=== PATIENT | female | born 1960 | race Caucasian/White ===

== ENCOUNTER 2019-06-04 12:10 | Emergency (ER) | payer BC, OTHER ==
--- NOTE | 2019-06-04 12:28 | EDM.PDOC ---
ED HPI GENERAL MEDICAL PROBLEM - General Chief Complaint: Skin Complaint Stated Complaint: POSSIBLE SHINGLES Time Seen by Provider: 06/04/19 12:27 Source of Information: Reports: Patient History Limitations: Reports: No Limitations - History of Present Illness INITIAL COMMENTS - FREE TEXT/NARRATIVE: HISTORY AND PHYSICAL: History of present illness: Patient is a 8-year-old female presents to the ED with concern of rash on her back. She states she started having back pain 4 days ago, today noticed a rash he left side of her back. She states she's had cold symptoms and felt feverish a few days ago. Review of systems: As per history of present illness and below otherwise all systems reviewed and negative. Past medical history: As per history of present illness and as reviewed below otherwise noncontributory. Surgical history: As per history of present illness and as reviewed below otherwise noncontributory. Social history: No reported history of drug or alcohol abuse. Family history: As per history of present illness and as reviewed below otherwise noncontributory. Physical exam: General: Patient sitting comfortably in no acute distress and nontoxic appearing HEENT: Atraumatic, normocephalic, pupils reactive, negative for conjunctival pallor or scleral icterus, mucous membranes moist, throat clear, neck supple, nontender, trachea midline. No meningeal signs. Lungs: Clear to auscultation, breath sounds equal bilaterally, chest nontender. Heart: S1S2, regular, negative for clicks, rubs, or overt murmur. Abdomen: Soft, nondistended, nontender. Negative for masses or hepatosplenomegaly. Negative for costovertebral tenderness. No rigidity, rebound , guarding. Pelvis: Stable nontender. Genitourinary: Deferred. Rectal: Deferred. Skin: there is clustered vesicles on an erythematous base Extremities: Atraumatic, negative for cords or calf pain. Neurovascular unremarkable. Neuro: Awake, alert, oriented. Cranial nerves II through XII unremarkable. Cerebellum unremarkable. Motor and sensory unremarkable throughout. Exam nonfocal. Notes: Diagnostics: none Therapeutics: [] Prescriptions: Valacyclovir Tramadol Impression: Shingles Plan: Take medications as instructed Follow up with primary care provider Return to ED as needed as discussed Definitive disposition and diagnosis as appropriate pending reevaluation and review of above. left side of back Pain Score (Numeric/FACES): 8 - Related Data Allergies Allergy/AdvReac Type Severity Reaction Status Date / Time No Known Allergies Allergy Verified 06/03/17 16:01 Home Meds: Home Meds Levothyroxine Sodium 06/04/19 [History] Lisinopril 06/04/19 [History] Omeprazole Magnesium [Prilosec Otc] 06/04/19 [History] Venlafaxine HCl [Venlafaxine ER] 06/04/19 [History] traMADol HCl [Tramadol HCl] 50 mg PO Q6H PRN #15 tablet 06/04/19 [Rx] valACYclovir [Valtrex] 1,000 mg PO TID 7 Days #21 tab 06/04/19 [Rx] Past Medical History Cardiovascular History: Reports: Hypertension Endocrine/Metabolic History: Reports: Hypothyroidism - Infectious Disease History Infectious Disease History: Reports: Chicken Pox Social & Family History - Family History Family Medical History: Noncontributory - Tobacco Use Smoking Status *Q: Never Smoker - Recreational Drug Use Recreational Drug Use: No ED ROS GENERAL - Review of Systems Review Of Systems: ROS reveals no pertinent complaints other than HPI. ED EXAM, SKIN/RASH Exam: See Below (see dictation) Course - Vital Signs Last Recorded V/S: Last Vital Signs Temp 95.8 F 06/04/19 12:18 Pulse 107 H 06/04/19 12:18 Resp 18 06/04/19 12:18 BP 156/97 H 06/04/19 12:18 Pulse Ox 98 06/04/19 12:18 Departure - Departure Time of Disposition: 12:45 Disposition: Home, Self-Care 01 Condition: Good Clinical Impression: Shingles - Discharge Information Prescriptions: traMADol HCl [Tramadol HCl] 50 mg PO Q6H PRN #15 tablet PRN Reason: Pain (Severe 7-10) valACYclovir [Valtrex] 1,000 mg PO TID 7 Days #21 tab Instructions: Shingles, [id number] Referrals: Tanner Roman MD [Primary Care Provider] - Forms: ED Department Discharge Additional Instructions: The following information is given to patients seen in the emergency department who are being discharged to home. This information is to outline your options for follow-up care. We provide all patients seen in our emergency department with a follow-up referral. The need for follow-up, as well as the timing and circumstances, are variable depending upon the specifics of your emergency department visit. If you don't have a primary care physician on staff, we will provide you with a referral. We always advise you to contact your personal physician following an emergency department visit to inform them of the circumstance of the visit and for follow-up with them and/or the need for any referrals to a consulting specialist. The emergency department will also refer you to a specialist when appropriate. This referral assures that you have the opportunity for follow-up care with a specialist. All of these measure are taken in an effort to provide you with optimal care, which includes your follow-up. Under all circumstances we always encourage you to contact your private physician who remains a resource for coordinating your care. When calling for follow-up care, please make the office aware that this follow-up is from your recent emergency room visit. If for any reason you are refused follow-up, please contact the [facility] Emergency Department at and asked to speak to the emergency department charge nurse. [facility] [address] [place] [id number] [id number] Take medications as instructed Follow up with primary care provider Return to ED as needed as discussed
== END 2019-06-04 15:44 | disposition home or self-care (01) ==
LOC: MW.ED 12:10
DX: B02.9 Zoster without complications (principal); I10 Essential (primary) hypertension; E03.9 Hypothyroidism, unspecified; Z79.890 Hormone replacement therapy; Z79.899 Other long term (current) drug therapy
CPT/HCPCS: 99282

== ENCOUNTER 2020-07-20 11:33 | Emergency (ER) | payer OTHER ==
--- NOTE | 2020-07-20 12:08 | EDM.PDOC ---
ED HPI GENERAL MEDICAL PROBLEM - General Chief Complaint: ENT Problem Stated Complaint: CHILLS SINUS Time Seen by Provider: 07/20/20 11:36 Source of Information: Reports: Patient History Limitations: Reports: No Limitations - History of Present Illness INITIAL COMMENTS - FREE TEXT/NARRATIVE: 59-year-old female with a past medical history of hypothyroidism and hypertension presenting with sinus pressure. Reports a 3-day history of sinus pressure, nasal congestion, and chills. 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 Denies any headache, fever, neck pain, chest pain, shortness of breath, difficulty speaking or swallowing, abdominal pain, dysuria, or rash. Past medical history: Reviewed, no additional pertinent history. Surgical history: Reviewed in system, no additional pertinent history. Social history: Reviewed in system, no additional pertinent history. Family history: Reviewed in system, no additional pertinent history. Limited physical examination was performed due to COVID pandemic, distanced physical examination to prevent physician exposure and to preserve PPE. Vital signs reviewed. Nursing notes reviewed. Constitutional: Awake, alert, non-distressed. Head: Normocephalic, atraumatic. Eyes: No scleral icterus. ENT: Uvula midline, moist oral mucosa. Nares clear bilaterally. No maxillary or frontal sinus tenderness. Neck: Able to fully flex and extend. Fully rotates side to side. Cardiovascular: No extremity edema. Pulmonary: normal work of breathing, no accessory muscle use. Speaking in full sentences, handling secretions well. Abdomen/GI: nondistended Musculoskeletal: No deformities. Integumentary: Appropriate color for ethnicity, warm, dry, no pallor or jaundice, no rash. Neurologic: Alert, answering questions appropriately, normal speech, no facial droop, moving all extremities well. Normal voice. Psychiatric: Appropriate mood and affect, normal thought process. This patient was seen and evaluated during the 2019 SARS-CoV-2 novel coronavirus pandemic period. Community viral transmission is ongoing at time of this encounter and widespread universal testing is not currently available in our emergency department. - Related Data Allergies Allergy/AdvReac Type Severity Reaction Status Date / Time amoxicillin [From Augmentin] Allergy Diarrhea Verified 07/20/20 11:44 clavulanic acid Allergy Diarrhea Verified 07/20/20 11:44 [From Augmentin] Home Meds: Home Meds Omeprazole Magnesium [Prilosec Otc] 20 mg PO DAILY PRN 06/04/19 [History] lisinopriL [Lisinopril] 5 mg PO DAILY 06/04/19 [History] Levothyroxine 112 mcg PO DAILY 07/20/20 [History] Rosuvastatin [Crestor] 5 mg PO DAILY 07/20/20 [History] Venlafaxine [Effexor XR] 75 mg PO DAILY 07/20/20 [History] Past Medical History Cardiovascular History: Reports: High Cholesterol, Hypertension Endocrine/Metabolic History: Reports: Hypothyroidism - Infectious Disease History Infectious Disease History: Reports: Chicken Pox, Shingles - Past Surgical History Female Surgical History: Reports: D&C Social & Family History - Family History Family Medical History: No Pertinent Family History - Tobacco Use Tobacco Use Status *Q: Never Tobacco User - Recreational Drug Use Recreational Drug Use: No ED ROS ENT - Review of Systems Review Of Systems: See Below ED EXAM, ENT - Physical Exam Exam: See Below Course - Vital Signs Text/Narrative:: Patient hemodynamically stable, afebrile, well-appearing, looks nontoxic. Differential diagnosis includes but is not limited to: COVID-19 infection, viral URI, viral sinusitis, less likely bacterial sinusitis. No evidence of sinusitis, no rhinorrhea noted. Handling secretions well without difficulty. Looks nontoxic. COVID-19 test is positive. I believe that her symptoms are consistent with this. She will be able to discharge home. We discussed symptomatic treatment including decongestant medications, Tylenol, Motrin, and plenty of fluids. Provided strict return precautions. Discussed isolation precautions patient voiced understanding. Plan: Patient is stable to discharge home with outpatient primary care clinic follow-up. Strict emergency department return precautions were provided, patient indicated understanding. All questions were answered prior to departure. Discharged in good condition. Last Recorded V/S: Last Vital Signs Temp 36.7 C 07/20/20 11:41 Pulse 100 07/20/20 11:41 Resp 16 07/20/20 11:41 BP 135/82 07/20/20 11:41 Pulse Ox 99 07/20/20 11:41 - Orders/Labs/Meds Orders: Active Orders 24 hr Category Date Time Status CORONAVIRUS COVID-19 PCR [facility] Stat Lab 07/20/20 12:08 Received Labs: Laboratory Tests 07/20/20 Range/Units 12:08 SARS CoV-2 RNA Rapid JOSE ANTONIO POSITIVE H (NEGATIVE) Departure - Departure Time of Disposition: 12:38 Disposition: Home, Self-Care 01 Condition: Good Clinical Impression: COVID-19 virus infection - Discharge Information *PRESCRIPTION DRUG MONITORING PROGRAM REVIEWED*: Not Applicable Instructions: COVID-19, Swallowed Foreign Body, Adult, [id number], Prevent the Spread of COVID-19 if You Are Sick - [facility] Referrals: [facility] [Provider Group] - 1 Week (As needed for follow-up of symptoms.) Forms: ED Department Discharge Additional Instructions: Your COVID-19 test was positive. You need to stay home from work or school and isolate from others as much as possible. You need to wear a mask or face covering and you should cover your cough or sneeze. Wash your hands frequently. Try to isolate yourself from family members or others as much as you can. You may develop new symptoms such as a headache, sore throat, cough, sneezing, nasal congestion or drainage, chest congestion, nausea, vomiting, diarrhea, body aches, or chills. These are not unusual. Recommendations from the Centers for Disease Control (CDC) are that you should isolate at home for at least 10 days from the start of your symptoms. When your areof improving for a period of 24 hours and you have no fever (without the use of fever reducing medications like acetaminophen or ibuprofen), you may discontinue isolation and go back to work/school. If you are still feeling unwell at the end of the 10-day period, you should continue to isolate until you have been feeling better for 24 hours. Anyone that lives with you or anyone that has been in close contact (within 6 feet for 15 total minutes) recently (3-4 days before your symptoms started) needs to be tested for COVID. You can take any standard [id number] medications for cold or flu type symptoms including fever reducing medications (acetaminophen or ibuprofen), cough medications (Robitussin, cough drops or lozenges), or medications like TheraFlu or DayQuil/NyQuil. Be sure you are drinking plenty of fluids. If you are still feeling sick beyond 10-14 days after the onset of your symptoms I would recommend contacting your primary medical doctor's office for further guidance. Warning signs to come back to the emergency department include shortness of breath, chest pain, lightheadedness, loss of consciousness, if you are unable to swallow or handle drinking fluids, or if you have any other new and concerning symptoms. Thank you for choosing the [facility] emergency department in [place] for your medical needs today. It was a pleasure caring for you. The following information is given to patients seen in the emergency department who are being discharged. This information is to outline your options for foll ow-up care. We provide all patients seen in our emergency department with a follow-up referral. The need for follow-up, as well as the timing and circumstances, are variable depending upon the specifics of your emergency department visit. If you don't have a primary care physician on staff, we will provide you with a referral. We always advise you to contact your personal physician following an emergency department visit to inform them of the circumstance of the visit and for follow-up with them and/or the need for any referrals to a consulting specialist. The emergency department will also refer you to a specialist when appropriate. This referral assures that you have the opportunity for follow-up care with a specialist. All of these measure are taken in an effort to provide you with o ptimal care, which includes your follow-up. Under all circumstances we always encourage you to contact your private physician who remains a resource for coordinating your care. When calling for follow-up care, please make the office aware that this follow-up is from your recent emergency room visit. If for any reason you are refused follow-up, please contact the [facility] Emergency Department at and asked to speak to the emergency department charge nurse. If you do not have a primary care physician that is caring for you, you can contact these clinics below to set up an appointment to establish care: [facility] - Primary [facility] [address] [place] [address] [facility] [address] [place] [address] Sepsis Event Note (ED) - Evaluation Sepsis Screening Result: No Definite Risk - Focused Exam Vital Signs: Vital Signs Temp Pulse Resp BP Pulse Ox 07/20/20 11:41 36.7 C 100 16 135/82 99 - My Orders Last 24 Hours: My Active Orders 07/20/20 12:08 CORONAVIRUS COVID-19 PCR PHL Stat - Assessment/Plan Last 24 Hours: My Active Orders 07/20/20 12:08 CORONAVIRUS COVID-19 PCR PHL Stat
== END 2020-07-20 13:06 | disposition home or self-care (01) ==
LOC: MW.ED 11:33
DX: U07.1 COVID-19 (principal); E78.00 Pure hypercholesterolemia, unspecified; I10 Essential (primary) hypertension; E03.9 Hypothyroidism, unspecified; Z79.899 Other long term (current) drug therapy; Z88.1 Allergy status to other antibiotic agents
CPT/HCPCS: 99282; 99283; U0002

== ENCOUNTER 2021-08-07 07:14 | Day surgery (SDC) | payer BC, OTHER ==
[~2021-08-07 07:14] MED LIST: Lactated Ringers 1,000 ML IV SCH
[2021-08-07] MEDS ORDERED: Ondansetron 4 MG/2 ML SDV ONE (08:15)
[2021-08-07] MEDS ORDERED: Dexamethasone 4 MG/ML 5 ML MDV ONE (08:15)
[2021-08-07] MEDS ORDERED: Lidocaine 2% 5 ML SDV ONE (08:15)
[2021-08-07] MEDS ORDERED: Midazolam 1 MG/ML 2 ML SDV ONE (08:16)
[2021-08-07] MEDS ORDERED: Propofol 200 MG/20 ML SDV ONE (08:16)
[2021-08-07] MEDS ORDERED: fentaNYL 100 MCG/2 ML SDV ONE ×2 (08:16→09:53)
[2021-08-07] MEDS ORDERED: Lidocaine 1% 20 ML MDV ONE (08:21)
[2021-08-07] MEDS ORDERED: Bupivacaine 0.5% 30 ML SDV ONE (08:21)
[2021-08-07] MEDS ORDERED: Bupivacaine 25%/EPINEPHrine/PF 0 ML ONE (08:22)
[2021-08-07] MEDS ORDERED: Morphine 4 MG/ML VIAL IVPUSH PRN (08:51)
[2021-08-07] MEDS ORDERED: Naloxone 0.4 MG/ML SDV IVPUSH PRN (08:51)
[2021-08-07] MEDS ORDERED: fentaNYL 100 MCG/2 ML SDV IVPUSH PRN (08:51)
[2021-08-07] MEDS ORDERED: Ondansetron 4 MG/2 ML SDV IVPUSH PRN (08:51)
[2021-08-07] MEDS ORDERED: Metoclopramide 10 MG/2 ML SDV IVPUSH PRN (08:51)
[2021-08-07] MEDS ORDERED: HYDROmorphone 1 MG/ML Syringe IVPUSH PRN (08:51)
[2021-08-07] MEDS ORDERED: Albuterol 0.083% 2.5 MG/3 ML Neb Soln NEB PRN (08:51)
--- NOTE | 2021-08-07 08:51 | PCM.PREANE ---
Preanesthetic Assessment - Anesthesia/Transfusion/Family Hx Anesthesia History: Prior Anesthesia Without Reaction Transfusion History: No Prior Transfusion(s) - Review of Systems General: No Symptoms Pulmonary: No Symptoms, Other (post-nasal drip from allergies) Cardiovascular: No Symptoms Gastrointestinal: No Symptoms Neurological: No Symptoms Other: Reports: None - Physical Assessment NPO Status Date: 08/06/21 NPO Status Time: 20:00 Vital Signs: Last Vital Signs Temp 97.5 F 08/07/21 08:25 Pulse 88 08/07/21 08:25 Resp 16 08/07/21 08:25 BP 159/82 H 08/07/21 08:25 Pulse Ox 97 08/07/21 08:25 Height: 5 ft 6 in Weight: 81.647 kg ASA Class: 2 Mental Status: Alert & Oriented x3 Airway Class: Mallampati = 3 Dentition: Reports: Normal Dentition Thyro-Mental Finger Breadths: 2 Mouth Opening Finger Breadths: 3 ROM/Head Extension: Full Lungs: Clear to Auscultation, Normal Respiratory Effort Cardiovascular: Regular Rate, Regular Rhythm - Lab Values: Laboratory Last Values SARS-CoV-2 RNA (JOSE ANTONIO) NEGATIVE (NEGATIVE) 08/07/21 06:58 - Allergies Allergies/Adverse Reactions: Allergies Allergy/AdvReac Type Severity Reaction Status Date / Time amoxicillin [From Augmentin] Allergy Diarrhea Verified 07/20/20 11:44 clavulanic acid Allergy Diarrhea Verified 07/20/20 11:44 [From Augmentin] - Acknowledgements Anesthesia Type Planned: General Anesthesia Pt an Appropriate Candidate for the Planned Anesthesia: Yes Alternatives and Risks of Anesthesia Discussed w Pt/Guardian: Yes Pt/Guardian Understands and Agrees with Anesthesia Plan: Yes PreAnesthesia Questionnaire HEENT History: Reports: Allergic Rhinitis, Other (See Below) Other HEENT History: wears glasses Cardiovascular History: Reports: High Cholesterol, Hypertension Respiratory History: Reports: Sleep Apnea Other Respiratory History: uses CPAP Gastrointestinal History: Reports: None Genitourinary History: Reports: None Musculoskeletal History: Reports: None Neurological History: Reports: None Psychiatric History: Reports: Depression Endocrine/Metabolic History: Reports: Hypothyroidism Hematologic History: Reports: None Immunologic History: Reports: None Oncologic (Cancer) History: Reports: Other (See Below) Other Oncologic History: 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 Dermatologic History: Reports: Eczema - Infectious Disease History Infectious Disease History: Reports: Chicken Pox, Shingles - Past Surgical History Head Surgeries/Procedures: Reports: None HEENT Surgical History: Reports: None Cardiovascular Surgical History: Reports: None Respiratory Surgical History: Reports: None GI Surgical History: Reports: None Female Surgical History: Reports: D&C Endocrine Surgical History: Reports: None Neurological Surgical History: Reports: None Musculoskeletal Surgical History: Reports: None Oncologic Surgical History: Reports: None Dermatological Surgical History: Reports: Skin Biopsy - SUBSTANCE USE Tobacco Use Status *Q: Never Tobacco User - HOME MEDS Home Medications: Home Meds lisinopriL [Lisinopril] 5 mg PO DAILY 06/04/19 [History] Levothyroxine 112 mcg PO DAILY 07/20/20 [History] Venlafaxine [Effexor XR] 150 mg PO DAILY 07/20/20 [History] Fexofenadine/Pseudoephedrine [Fani-D 12 Hour Tablet] 1 tab PO DAILY 08/04/21 [History] Fluticasone Propionate 1 spray NASBOTH BID 08/04/21 [History] atorvaSTATin [Lipitor] 10 mg PO DAILY 08/04/21 [History] hydrOXYzine HCL [Hydroxyzine HCl] 25 mg PO BEDTIME 08/04/21 [History] - CURRENT (IN HOUSE) MEDS Current Meds: Current Medications Lactated Ringer's (Ringers, Lactated) 1,000 mls @ 125 mls/hr IV ASDIRECTED [facility] Clindamycin Phosphate (Cleocin In D5w 600 Mg/50 Ml) 50 mls @ 100 mls/hr IV ONCALL VALERIE Discontinued Medications Bupivacaine HCl (Bupivacaine 0.5% 30 Ml Sdv) Confirm Administered Dose 30 ml .ROUTE .STK-MED ONE Stop: 08/07/21 08:22 Dexamethasone (Dexamethasone 4 Mg/Ml 5 Ml Mdv) Confirm Administered Dose 20 mg .ROUTE .STK-MED ONE Stop: 08/07/21 08:16 Fentanyl (Fentanyl 100 Mcg/2 Ml Sdv) Confirm Administered Dose 100 mcg .ROUTE .STK-MED ONE Stop: 08/07/21 08:17 Clindamycin Phosphate 600 mg/ (Sodium Chloride) 54 mls @ 100 mls/hr IV ONETIME ONE Stop: 08/07/21 09:32 Bupivacaine HCl/Epinephrine Bitart (Sensorc Mpf 0.25%-Epi [id number]) Confirm Administered Dose 30 mls @ as directed .ROUTE .STK-MED ONE Stop: 08/07/21 08:23 Lidocaine (Lidocaine 2% 5 Ml Sdv) Confirm Administered Dose 5 ml .ROUTE .STK-MED ONE Stop: 08/07/21 08:16 Lidocaine HCl (Lidocaine 1% 20 Ml Mdv) Confirm Administered Dose 20 ml .ROUTE .STJigsee-MED ONE Stop: 08/07/21 08:22 Midazolam HCl (Midazolam 1 Mg/Ml 2 Ml Sdv) Confirm Administered Dose 2 mg .ROUTE .STJigsee-MED ONE Stop: 08/07/21 08:17 Ondansetron HCl (Ondansetron 4 Mg/2 Ml Sdv) Confirm Administered Dose 4 mg .ROUTE .STJigsee-MED ONE Stop: 08/07/21 08:16 Propofol (Propofol 200 Mg/20 Ml Sdv) Confirm Administered Dose 200 mg .ROUTE .STJigsee-MED ONE Stop: 08/07/21 08:17
[2021-08-07] MEDS ORDERED: Clindamycin Phosphate in D5W 50 ML IV SCH (09:00)
[2021-08-07] MEDS ORDERED: ePHEDrine 50 MG/ML SDV ONE (09:47)
[2021-08-07] MEDS ORDERED: Vasopressin 20 Units/1 ML MDV ONE (10:01)
[2021-08-07] MEDS ORDERED: Ketorolac 30 MG/ML SDV ONE (10:08)
--- NOTE | 2021-08-07 10:50 | PN ---
The patient is a 60-year-old female. PLANNED PROCEDURE: Exostectomy, 1st metatarsophalangeal joint, left foot. ALLERGIES: Noted to Augmentin and dust. CURRENT MEDICATIONS: 1. Lipitor 10 mg p.o. daily. 2. Fani p.o. daily. 3. Hydroxyzine 25 mg one tab p.o. daily for anxiety at hour of sleep. 4. Levothyroxine 112 mcg one tab p.o. daily. 5. Lisinopril 5 mg p.o. daily. 6. Venlafaxine 150 mg p.o. daily. 7. Flonase nasal spray b.i.d. PAST MEDICAL HISTORY: Significant for allergic rhinitis, hypertension, hyperlipidemia, hypothyroidism, and depression. LABORATORY DATA: White blood cell 12.5, red blood cell 4.83, hemoglobin 14.1, hematocrit 41.2, platelets 308. PT 9.8, INR 1.0. Glucose 76, calcium 9.4, BUN 15, creatinine 0.81, sodium 140, potassium 3.8, chloride 103, CO2 of 31. SARS-CoV-2 today is negative. Also, PTT is 30.2. Chest x-ray showed no acute cardiopulmonary process. EKG showed sinus rhythm. The clearing physician confirmed that the patient may proceed with surgery, and the patient was cleared for surgery by Dr. Azalea Ruiz DO. All the patient's questions have been asked and answered. No guarantees have been expressed or implied. Risks and benefits have been reviewed with the patient including for a prolonged healing and postoperative infection. The patient presents for the planned procedure above today. Written consent obtained and in chart. BERNADINE ALAS /[id number] MTDNegro
--- NOTE | 2021-08-07 11:07 | PCM.POSTAN ---
POST ANESTHESIA ASSESSMENT - MENTAL STATUS Mental Status: Somnolent - VITAL SIGNS Vital Signs: Last Vital Signs Temp 98.1 F 08/07/21 10:56 Pulse 91 08/07/21 11:02 Resp 16 08/07/21 11:02 BP 87/56 L 08/07/21 11:02 Pulse Ox 94 L 08/07/21 11:02 - RESPIRATORY Respiratory Status: Respiratory Rate WNL, Airway Patent, O2 Saturation Stable, Supplemental Oxygen - CARDIOVASCULAR CV Status: Pulse Rate WNL, Blood Pressure Stable - GASTROINTESTINAL GI Status: No Symptoms - POST OP HYDRATION Hydration Status: Adequate & Stable
--- NOTE | 2021-08-07 11:14 | PCM48HPAN ---
Post Anesthesia Note - EVALUATION WITHIN 48HRS OF ANESTHETIC Vital Signs in Normal Range: Yes Patient Participated in Evaluation: Yes Respiratory Function Stable: Yes Airway Patent: Yes Cardiovascular Function Stable: Yes Hydration Status Stable: Yes Pain Control Satisfactory: Yes Nausea and Vomiting Control Satisfactory: Yes Mental Status Recovered: Yes Vital Signs: Last Vital Signs Temp 98.1 F 08/07/21 10:56 Pulse 106 H 08/07/21 11:12 Resp 16 08/07/21 11:12 BP 116/63 08/07/21 11:12 Pulse Ox 97 08/07/21 11:12
--- NOTE | 2021-08-07 11:35 | PCM.OPNOTE ---
- General Post-Op/Procedure Note Date of Surgery/Procedure: 08/07/21 Operative Procedure(s): exostectomy first metatarsal phalangeal joint left foot Findings: consistent with diagnosis Pre Op Diagnosis: exostosis first metatarsal phalangeal joint left foot Post-Op Diagnosis: exostosis first metatarsal phalangeal joint left foot Anesthesia Technique: General LMA Pathology: exostosis fragments from first metatarsal phalangeal joint left foot including first metatarsal and proximal phalanx of hallux EBL in mLs: 10 Complications: none Condition: Good Free Text/Narrative:: materials: 4-0 Vicryl, 4-0 Stratafix injectables: 6 ml 0.5% Marcaine plain tourniquet time: 44 minutes
--- NOTE | 2021-08-07 16:17 | OR ---
SURGEON: Carl Patricio DPM DATE OF PROCEDURE: 08/07/2021 OPERATIVE PROCEDURE: Exostectomy, first metatarsophalangeal joint, left foot. PREOPERATIVE DIAGNOSIS: Exostosis, first metatarsophalangeal joint, left foot. POSTOPERATIVE DIAGNOSIS: Exostosis, first metatarsophalangeal joint, left foot. ANESTHESIA: General LMA. TOURNIQUET: Above-ankle tourniquet inflated on the left ankle to a pressure of 250 mmHg after an Esmarch bandage exsanguination of the left lower extremity. Tourniquet time was 44 minutes. PATHOLOGY: Exostosis removed from the first metatarsophalangeal joint area of the left foot including the first metatarsal head and the base of the proximal phalanx of the hallux. ESTIMATED BLOOD LOSS: 10 mL. COMPLICATIONS: None. CONDITION: Good. MATERIALS: 4-0 Vicryl and 4-0 Stratafix sutures. INJECTABLES: 6 mL of 0.5% Marcaine plain. JUSTIFICATION FOR PROCEDURE: The patient has painful hallux limitus with significant exostosis noted to first metatarsophalangeal joint and the most conservative procedure that could be attempted here is the procedure today which is the exostectomy. The patient's questions have been asked and answered. No guarantees expressed or implied, and risks and benefits were thoroughly discussed with the patient. Written consent was obtained from the patient and placed in the patient's chart for the planned procedure. PROCEDURE IN DETAIL: The patient was brought to the operating room, placed on the operating table in a supine position, at which time an aseptic scrub and drape was performed about the patient's left lower extremity. Prior to scrubbing the patient, preoperative x-rays were taken verifying the exostosis preoperative state at the first metatarsophalangeal joint of the left foot. Anesthesia was induced prior to taking of the x-ray and following the x-rays, scrub and drape of the left lower extremity was performed followed by a time-out with all present, verifying the correct planned procedure and the correct surgical site which had been marked prior to bringing the patient into the operative suite. Incision planning was done prior to inflation of the tourniquet. Incision was then made over the dorsal mid aspect of the first metatarsophalangeal joint of the patient's left foot from proximal to distal. The incision length was approximately 2 cm. Incision was deepened with care taken to perform careful layered dissection and small bleeders were not encountered and Bovie was not necessary. The extensor tendon was identified and retracted out of the path of the dissection. The exostosis present on the base of the proximal phalanx of the hallux as well as significant exostosis present on the head of the first metatarsal of the left foot were readily identified, and these were resected with a combination of small bone rongeur and power rasp. The site was flushed with copious amounts of normal sterile saline several times throughout the procedure, and on further inspection and distraction of the joint, a small loose body was identified and retracted as well and added to the exostosis fragments sent to Pathology. Following final x-rays and flushing of the surgical site, the area was closed with layered closure. The deep and subcutaneous tissues were closed with 4-0 Vicryl suture, and the superficial skin with 4-0 Stratafix suture. 6 mL of 0.5% Marcaine plain was infiltrated about the surgical site. The tourniquet was deflated prior to the skin closure at a time of 44 minutes. Dressings consisted of Betadine-soaked Xeroform gauze, followed by 4 x 4 gauze and Kerlix roll secured with an Ubaldo bandage, and the patient did tolerate the procedure and anesthesia well. There was a prompt hyperemic response noted upon deflation of the tourniquet to all digits of the left foot. The patient will be following up with me and has verbal instructions and is receiving written discharge instructions as well and will be seen in the office no later than Wednesday next week and possibly over the weekend as needed. BERNADINE / BISHOP /[id number] LORENZO
--- NOTE | 2021-08-08 21:19 | CR ---
Indication: Bone spur left foot Technique: Four spot fluoroscopic views of the left foot. Comparison: None. Findings: Multiple spot fluoroscopic views of the foot demonstrate removal of osteophyte about the dorsal head of the 1st metatarsal. Osseous structures as imaged are otherwise unremarkable. Fluoroscopy time: 11.6 seconds. Radiation dose: [id number] mGym2. Impression: Spot fluoroscopic views of the left foot for surgical planning. Dictated by Serge Cornejo MD @ 08/08/2021 9:18:32 PM (Electronically Signed)
== END 2021-08-07 13:05 | disposition home or self-care (01) ==
LOC: MW.SDS 07:14
PROVIDERS: ATTEND Podiatrist Foot & Ankle Surgery
DX: M89.8X7 Other specified disorders of bone, ankle and foot (principal); I10 Essential (primary) hypertension; E03.9 Hypothyroidism, unspecified; F41.9 Anxiety disorder, unspecified; F32.A Depression, unspecified; G47.33 Obstructive sleep apnea (adult) (pediatric); Z88.8 Allergy status to other drugs, medicaments and biological substances; Z79.899 Other long term (current) drug therapy; Z01.812 Encounter for preprocedural laboratory examination; Z20.822 Contact with and (suspected) exposure to COVID-19
CPT/HCPCS: 28104; 28124; 87635; J0131; J1100; J1885; J2250; J2370; J2704; J3010; J3490; J7120; 01480; J2405; U0002